=== PATIENT | female | born 1985 | race African-American/Black ===

== ENCOUNTER → 2020-04-26 | Outpatient (CLI) | payer SELFPAY ==
--- NOTE | 2020-04-28 09:14 | RADIOLOGY REPORT (SQ) ---
EXAM DESCRIPTION: CT RT UPPER EXTREMITY WITHOUT IMAGES COMPLETED DATE/TIME: 04/26/2020 12:19 pm REASON FOR STUDY: S63.591A OTHER SPECIFIED SPRAIN OF RIGHT WRIST, INITIAL ENCOUNTER COMPARISON: None. TECHNIQUE: Axial imaging performed through the Right wrist with reformatted coronal and sagittal imaging windowed for bone and soft tissues. Images saved to PAC S. 3D IMAGING: Were 3D images as MIP, SSD, or volume rendering performed at the work station? Yes LIMITATIONS: External cast. FINDINGS: SOFT TISSUES: No obvious swelling or foreign body. BONY STRUCTURES: No acute fracture. No dislocation. MINERALIZATION: Normal. OTHER: No other significant finding. IMPRESSION: Successful closed reduction of distal radioulnar joint dislocation. Reading location - IP/workstation name: [email or web address]
== END ==
LOC: RAD 12:06
PROVIDERS: ATTEND Physician Assistant
DX: S63.591A Other specified sprain of right wrist, initial encounter (principal); X58.XXXA Exposure to other specified factors, initial encounter; Y93.9 Activity, unspecified; Y92.9 Unspecified place or not applicable